=== PATIENT | female | born 1955 | race Caucasian/White ===

== ENCOUNTER 2022-05-26 08:48 | Outpatient (CLI) | payer MEDICARE, OTHER, SELFPAY ==
--- NOTE | 2022-05-26 08:57 | MM_ITS ---
WS: [email or web address] Bilateral screening 3D tomosynthesis digital mammogram, 05/26/2022 Clinical Data: SCREENING Comparison: None. Findings: The breast parenchymal pattern shows fibroglandular tissue No spiculated masses or clustered calcific ations are seen. There are no secondary signs of carcinoma. There is a irregular 1.0 cm density in th e lateral aspect of the left breast in the 3:00 position. It has a well-defined border with minimal i rregularity. MM/[place] [id number] Impression: Recommend left ML view and lateral left breast ultrasound. BIRADS: 0-Incomplete: Need additional imaging evaluation FOLLOW UP: See Report The CAD linen checker was used.
== END 2022-05-26 08:49 | disposition home or self-care (01) ==
LOC: RAD 08:54
PROVIDERS: PCP Family Medicine; Visit Provider Family Medicine
DX: Z12.31 Encounter for screening mammogram for malignant neoplasm of breast (principal)
CPT/HCPCS: 77063; 77067

== ENCOUNTER 2022-06-21 08:34 | Outpatient (CLI) | payer MEDICARE, OTHER, SELFPAY ==
--- NOTE | 2022-06-21 08:38 | MM_ITS ---
WS: [email or web address] ADDITIONAL VIEWS LEFT MAMMOGRAM with tomosynthesis. LEFT BREAST ULTRASOUND HISTORY: ABNORMAL MAMMOGRAM COMPARISON: 05/26/2022 LEFT MAMMOGRAM: Spot compression views and true ML with tomosynthesis and sympathetic mammography. Asymmetry measuring 9 mm persists but becomes much less apparent in the posterior LEFT breast along t he 3-4 o'clock axis. This is not a well-formed asymmetry. LEFT BREAST ULTRASOUND 2-D and color Doppler imaging submitted. Very subtle change in echogenicity in the LEFT breast at 2:00, 3 cm from the nipple. This area measur es 8 x 5 x 7 mm. Indeterminate that this correlates with the mammographic abnormality. MM/[place] [id number] IMPRESSION: BI-RADS: 3-Probably Benign FOLLOW UP: 6 Month Follow-up The asymmetry in the LEFT breast becomes less apparent with additional views an d there is no definite corresponding and concerning abnormality on ultrasound. This may be normal fibroglandular tissue. Suggest short-term follow-up by mammo graphy and ultrasound.
== END 2022-06-21 08:35 | disposition home or self-care (01) ==
LOC: RAD 08:35
PROVIDERS: PCP Family Medicine; Visit Provider Family Medicine
DX: R92.8 Other abnormal and inconclusive findings on diagnostic imaging of breast (principal); N64.89 Other specified disorders of breast
CPT/HCPCS: 76642; 77061

== ENCOUNTER 2022-09-08 07:01 | Outpatient (CLI) | payer MEDICARE, OTHER, SELFPAY ==
--- NOTE | 2022-09-08 | US_ITS ---
WS: [email or web address] ULTRASOUND SOFT TISSUES LEFT neck. HISTORY: LEFT SOFT TISSUE MASS/LYMPHADENOPATHY COMPARISON: None available. TECHNIQUE: 2-D and color Doppler imaging is submitted. Small lymph node along the LEFT neck near the submandibular gland measures 10 x 8 x 10 mm. No additio nal masses. No enlarged lymph nodes. US/US soft tissue/extremity [id number] IMPRESSION: Palpable nodule in the LEFT neck corresponds to a normal-appearing lymph node.
== END 2022-09-08 07:02 | disposition home or self-care (01) ==
LOC: RAD 07:01
PROVIDERS: PCP Family Medicine; Visit Provider Family Medicine
DX: R59.0 Localized enlarged lymph nodes (principal)
CPT/HCPCS: 76882

== ENCOUNTER 2023-01-02 07:31 | Outpatient (CLI) | payer MEDICARE, OTHER, SELFPAY ==
--- NOTE | 2023-01-02 07:51 | MM_ITS ---
WS: [email or web address] ADDITIONAL VIEWS LEFT MAMMOGRAM with tomosynthesis. LEFT BREAST ULTRASOUND HISTORY: 6M[facility] ABNORMAL MAMMO COMPARISON: 06/21/2022, 05/26/2022 LEFT MAMMOGRAM: Spot compression views and true ML with tomosynthesis and sympathetic mammography. Asymmetry measuring 10 x 10 mm persists in the lateral LEFT breast near 3-4 o'clock. No increase in s ize. There are benign vascular calcifications. Ultrasound to follow. LEFT BREAST ULTRASOUND 2-D and color Doppler imaging submitted. Mixed echogenicity mass persists at 3-4 o'clock, 3 cm from the nipple. There are a few small cystic a reas. No increase in size. By mammography and ultrasound this is unchanged. MM/[place] [id number] IMPRESSION: BI-RADS: 3-Probably Benign FOLLOW UP: 6 Month Follow-up Patient to return for bilateral annual mammogram in June 2023. Additional fo llow-up imaging of the LEFT breast asymmetry at 4:00 should also be performed a t that time.
== END 2023-01-02 07:32 | disposition home or self-care (01) ==
LOC: RAD 07:33
PROVIDERS: PCP Family Medicine; Visit Provider Family Medicine
DX: R92.8 Other abnormal and inconclusive findings on diagnostic imaging of breast (principal)
CPT/HCPCS: 76642; 77061; G0279

== ENCOUNTER 2023-07-18 10:17 | Outpatient (CLI) | payer MEDICARE, OTHER, SELFPAY ==
--- NOTE | 2023-07-18 10:28 | MM_ITS ---
WS: [email or web address] DIAGNOSTIC BILATERAL DIGITAL BREAST TOMOSYNTHESIS MAMMOGRAPHY WITH CAD LEFT breast ultrasound, limited HISTORY: 6[facility] COMPARISON: 01/02/2023, 06/21/2022 and 05/26/2022 TECHNIQUE: Bilateral craniocaudad, mediolateral oblique, and mediolateral views are submitted with to mosynthesis and SM. Spot compression LEFT CC. Computer aided detection utilized. Breast composition: There are scattered areas of fibroglandular density. The mass within the LEFT victor manuel ast at 3:00 persists. Mass measures 10 x 9 mm. Borders are slightly lobulated. No increase in size. S table since 05/26/2022. LEFT breast ultrasound, limited. Ultrasound is directed to the lateral RIGHT breast. At the 3:00 axis, 3 cm from the nipple is a mixed echogenicity mass measuring 6 x 5 x 9 mm. This corresponds in size and location to the mammographic abnormality. There is been no change on mammography or ultrasound. IMPRESSION: MM/[place] [id number] BI-RADS: 3-Probably Benign FOLLOW UP: 6 Month Follow-up 6-month follow-up LEFT breast, mammography and ultrasound. Long-term surveillance is necessary to document stability of the mass LEFT xochilt st at 3:00. Additional follow-up mammogram and ultrasound recommended. This amandeep l need to be followed for a total of 2 years unless there is interval change. S table since 05/26/2022.
== END 2023-07-18 10:18 | disposition home or self-care (01) ==
LOC: RAD 10:17
PROVIDERS: PCP Family Medicine; Visit Provider Family Medicine
DX: R92.8 Other abnormal and inconclusive findings on diagnostic imaging of breast (principal); Z78.9 Other specified health status; N63.25 Unspecified lump in the left breast, overlapping quadrants
CPT/HCPCS: 76642; 77062; G0279

== ENCOUNTER 2024-03-05 12:47 | Outpatient (CLI) | payer MEDICARE, OTHER, SELFPAY ==
--- NOTE | 2024-03-05 12:54 | MM_ITS ---
WS: [email or web address] ADDITIONAL VIEWS LEFT MAMMOGRAM with tomosynthesis. LEFT BREAST ULTRASOUND HISTORY: ABNORMAL LEFT MAMMOGRAM COMPARISON: 07/18/2023, 01/02/2023, 05/26/2022 LEFT MAMMOGRAM: Spot compression views and true ML with tomosynthesis and sympathetic mammography. The ovoid 11 x 6 mm mass in the LEFT breast at 3:00 is unchanged in size and appearance. No suspiciou s mass or calcification otherwise. LEFT BREAST ULTRASOUND 2-D and color Doppler imaging submitted. There is a lymph node at 3:00 LEFT breast as previously described measuring 6 x 6 x 4 mm. No solid ma ss. On today's study this mass appears more like a lymph node than in the past. This may be due to ad jacent lymph nodes. MM/[place] [id number] IMPRESSION: BI-RADS: 2-Benign FOLLOW UP: 1 Year Follow-up Patient to return to annual screening mammography.
== END 2024-03-05 12:48 | disposition home or self-care (01) ==
LOC: RAD 12:48
PROVIDERS: PCP Family Medicine; Visit Provider Family Medicine
DX: R92.8 Other abnormal and inconclusive findings on diagnostic imaging of breast (principal); N63.42 Unspecified lump in left breast, subareolar
CPT/HCPCS: 76642; 77061; G0279

== ENCOUNTER → 2024-04-11 14:53 | Outpatient (BNVA) | payer MEDICARE, OTHER, SELFPAY | PROVIDERS: PCP Family Medicine; Visit Provider Nurse Practitioner Women's Health | DX: R10.2 Pelvic and perineal pain (principal) | CPT/HCPCS: 81000; 87086 ==

== ENCOUNTER → 2024-11-18 08:39 | Outpatient (BNVA) | payer MEDICARE, OTHER, SELFPAY | PROVIDERS: PCP Family Medicine; Visit Provider Family Medicine | DX: Z13.1 Encounter for screening for diabetes mellitus (principal); Z13.6 Encounter for screening for cardiovascular disorders; R53.83 Other fatigue; I10 Essential (primary) hypertension; R41.3 Other amnesia; R56.9 Unspecified convulsions; G25.81 Restless legs syndrome | CPT/HCPCS: 80053; 80061; 82607; 84439; 84443; 85025 ==

== ENCOUNTER → 2025-01-02 10:18 | Outpatient (BNVA) | payer MEDICARE, OTHER, SELFPAY | PROVIDERS: PCP Family Medicine; Visit Provider Family Medicine | DX: R39.15 Urgency of urination (principal) | CPT/HCPCS: 87086 ==

== ENCOUNTER 2025-03-07 10:44 | Outpatient (CLI) | payer MEDICARE, OTHER, SELFPAY ==
--- NOTE | 2025-03-07 11:00 | MM_ITS ---
WS: [email or web address] SCREENING DIGITAL BREAST TOMOSYNTHESIS MAMMOGRAM WITH CAD HISTORY: screening; due after 03.05.25 COMPARISON: 01/02/2023, 03/05/2024, 07/18/2023 Bilateral CC and MLO with tomosynthesis and synthetic mammography submitted. Computer aided detection analyzed. Breast composition: There are scattered areas of fibroglandular density. Spiculated high density mass near the 11-12 o'clock axis of the RIGHT breast at a middle depth. Mass measures 1.3 x 2.1 x 2.0 cm. There are 2 separate spiculated areas that are connected by a band of increased soft tissue density on the lateral projection. This is probably a single lesion. This mass has developed since the prior exam. Again noted is the asymmetry that has been previously described in the upper outer quadrant of the LEFT breast. MM/MM scr [place] tomosynthesis [id number] IMPRESSION: BI-RADS: 0 - Incomplete: Need additional imaging evaluation. FOLLOW UP: Need Additional Imaging RIGHT breast: Spot compression views (CC and MLO). True ML. Ultrasound to follo w if abnormality persists.
== END 2025-03-07 10:45 | disposition home or self-care (01) ==
LOC: RAD 10:47
PROVIDERS: PCP Family Medicine; Visit Provider Family Medicine
DX: Z12.39 Encounter for other screening for malignant neoplasm of breast (principal); N63.11 Unspecified lump in the right breast, upper outer quadrant
CPT/HCPCS: 77063; 77067

== ENCOUNTER 2025-03-31 08:09 | Outpatient (CLI) | payer MEDICARE, SELFPAY ==
--- NOTE | 2025-03-31 08:15 | MM_ITS ---
WS: [email or web address] ADDITIONAL VIEWS RIGHT MAMMOGRAM WITH DIGITAL BREAST TOMOSYNTHESIS. RIGHT BREAST ULTRASOUND HISTORY: right breast mass on screening mammo COMPARISON: 03/07/2025, 07/18/2023 RIGHT MAMMOGRAM: Spot compression views and true ML with digital breast tomosynthesis and SM. Breast composition: There are scattered areas of fibroglandular density. There are 2 adjacent spiculated masses at a middle depth within the RIGHT breast towards 11-12 o'clock. More anterior spiculated mass measures 10 x 13 x 11 mm. Just slightly posterior is an additional mass which be connected by a soft tissue band. The second spiculated mass measures 10 x 8 x 10 mm. RIGHT BREAST ULTRASOUND 2-D and color Doppler imaging submitted. Spiculated, irregular hypoechoic mass is identified in the RIGHT breast at 11:00, 2 cm from the nipple. There are 2 hypoechoic masses as described also by mammography in the upper outer quadrant. These masses are nearly inseparable and is may be a single mass. The largest component measures 11 x 14 x 8 mm. There is increased vascularity. The smaller adjacent hypoechoic irregular spiculated mass measures 0.5 x 0.6 x 0.7 cm. No RIGHT axillary lymph nodes. MM/MM diag RT tomosynthesis [id number] IMPRESSION: BI-RADS: 0 - Incomplete: Need additional imaging evaluation. FOLLOW UP: Biopsy Recommended 1. 2 irregular, spiculated, hypoechoic masses upper outer quadrant RIGHT breas t. These masses are very closely positioned. This may be a single mass or multi focal breast cancer. Ultrasound-guided biopsy recommended. 2. No RIGHT axillary adenopathy.
--- NOTE | 2025-03-31 08:45 | US_ITS ---
WS: [email or web address] ADDITIONAL VIEWS RIGHT MAMMOGRAM WITH DIGITAL BREAST TOMOSYNTHESIS. RIGHT BREAST ULTRASOUND HISTORY: right breast mass on screening mammo COMPARISON: 03/07/2025, 07/18/2023 RIGHT MAMMOGRAM: Spot compression views and true ML with digital breast tomosynthesis and SM. Breast composition: There are scattered areas of fibroglandular density. There are 2 adjacent spiculated masses at a middle depth within the RIGHT breast towards 11-12 o'clock. More anterior spiculated mass measures 10 x 13 x 11 mm. Just slightly posterior is an additional mass which be connected by a soft tissue band. The second spiculated mass measures 10 x 8 x 10 mm. RIGHT BREAST ULTRASOUND 2-D and color Doppler imaging submitted. Spiculated, irregular hypoechoic mass is identified in the RIGHT breast at 11:00, 2 cm from the nipple. There are 2 hypoechoic masses as described also by mammography in the upper outer quadrant. These masses are nearly inseparable and is may be a single mass. The largest component measures 11 x 14 x 8 mm. There is increased vascularity. The smaller adjacent hypoechoic irregular spiculated mass measures 0.5 x 0.6 x 0.7 cm. No RIGHT axillary lymph nodes. US/[place] complete [id number] IMPRESSION: BI-RADS: 0 - Incomplete: Need additional imaging evaluation. FOLLOW UP: Biopsy Recommended 1. 2 irregular, spiculated, hypoechoic masses upper outer quadrant RIGHT breas t. These masses are very closely positioned. This may be a single mass or multi focal breast cancer. Ultrasound-guided biopsy recommended. 2. No RIGHT axillary adenopathy.
== END 2025-03-31 08:10 | disposition home or self-care (01) ==
PROVIDERS: PCP Family Medicine; Visit Provider Family Medicine
DX: N63.11 Unspecified lump in the right breast, upper outer quadrant (principal)
CPT/HCPCS: 76641; 77061; G0279

== ENCOUNTER 2025-04-09 14:11 | Outpatient (CLI) | payer MEDICARE, SELFPAY ==
--- NOTE | 2025-04-09 | US_ITS ---
WS: [email or web address] ULTRASOUND-GUIDED RIGHT BREAST BIOPSY x2 CLINICAL INFORMATION: R breast mass FINDINGS: Prior imaging was reviewed. Irregular hypoechoic mass at the 11 o'clock position with an adjacent satellite nodule or lobulation. This may represent 1 lobulated lesion or 2 separate lesions. Both areas were sampled. The larger dominant area was considered SAMPLE A and the smaller lobulated area considered SAMPLE B The procedure including risks, benefits, and complications were discussed with the patient who agreed to proceed. Using sterile technique patient was prepped and draped in the usual sterile fashion. After 1% lidocaine utilizing real-time ultrasound guidance for 14-gauge cores were obtained of the RIGHT breast lesion at the 11 o'clock position 2 cm from the nipple. Subsequently a titanium clip was placed in the biopsy cavity. No immediate complications. This is considered SAMPLE A Next, using ultrasound guidance after 1% lidocaine the smaller satellite lesion at the 11 o'clock position 2 cm from the nipple was sampled. 4 14-gauge cores were obtained. A titanium clip was placed. No immediate complications. This is considered SAMPLE B US/[place] [id number] IMPRESSION: 1. Uncomplicated ultrasound-guided RIGHT breast biopsy x2. 2. The pathology demonstrates : Invasive mammary carcinoma nuclear grade 2 in both samples. 3. Breast prognostic profile has been ordered for both samples and will be rep orted separately by pathology 4. Recommend BREAST SURGERY CONSULTATION DENSITY: There are scattered areas of fibroglandular density. BI-RADS: 6 - Known Biopsy - Proven Malignancy. FOLLOW UP: Surgical Biopsy Recommended
--- NOTE | 2025-04-09 14:45 | US_ITS ---
WS: [email or web address] ULTRASOUND-GUIDED RIGHT BREAST BIOPSY x2 CLINICAL INFORMATION: R breast mass FINDINGS: Prior imaging was reviewed. Irregular hypoechoic mass at the 11 o'clock position with an adjacent satellite nodule or lobulation. This may represent 1 lobulated lesion or 2 separate lesions. Both areas were sampled. The larger dominant area was considered SAMPLE A and the smaller lobulated area considered SAMPLE B The procedure including risks, benefits, and complications were discussed with the patient who agreed to proceed. Using sterile technique patient was prepped and draped in the usual sterile fashion. After 1% lidocaine utilizing real-time ultrasound guidance for 14-gauge cores were obtained of the RIGHT breast lesion at the 11 o'clock position 2 cm from the nipple. Subsequently a titanium clip was placed in the biopsy cavity. No immediate complications. This is considered SAMPLE A Next, using ultrasound guidance after 1% lidocaine the smaller satellite lesion at the 11 o'clock position 2 cm from the nipple was sampled. 4 14-gauge cores were obtained. A titanium clip was placed. No immediate complications. This is considered SAMPLE B US/[place] [id number] IMPRESSION: 1. Uncomplicated ultrasound-guided RIGHT breast biopsy x2. 2. The pathology demonstrates : Invasive mammary carcinoma nuclear grade 2 in both samples. 3. Breast prognostic profile has been ordered for both samples and will be rep orted separately by pathology 4. Recommend BREAST SURGERY CONSULTATION DENSITY: There are scattered areas of fibroglandular density. BI-RADS: 6 - Known Biopsy - Proven Malignancy. FOLLOW UP: Surgical Biopsy Recommended
[2025-04-14 12:55] LABS: Breast Profile ER,PR,HER2,Ki-6 See Report
[2025-04-14 14:07] LABS: Breast Profile ER,PR,HER2,Ki-6 See Report
== END 2025-04-09 14:12 | disposition home or self-care (01) ==
LOC: RAD 14:12
PROVIDERS: PCP Family Medicine; Visit Provider Family Medicine
DX: C50.411 Malignant neoplasm of upper-outer quadrant of right female breast (principal)
CPT/HCPCS: 19083; 19084; 88305; 88361; 88374